=== PATIENT | male | born 1980 | race Two or more races ===

== ENCOUNTER → 2020-04-29 | Outpatient (CLI) | payer OTHER | END | disposition home or self-care (01) | LOC: OFIC 805 10:30 | PROVIDERS: ATTEND Otolaryngology Otology & Neurotology | DX: J03.80 Acute tonsillitis due to other specified organisms (principal); J35.01 Chronic tonsillitis; K21.9 Gastro-esophageal reflux disease without esophagitis; K14.6 Glossodynia ==